=== PATIENT | male | born 1955 | race Two or more races ===

== ENCOUNTER 2018-12-25 19:13 | Inpatient (IN) | payer SELFPAY ==
[~2018-12-25] VITALS: Ht 177.8 cm; Wt 90.0 kg
[2018-12-25] MEDS ORDERED: MORPHINE SULFATE INJECTION 1 ML ONE (19:22)
[2018-12-25] MEDS ORDERED: ONDANSETRON HCL 4 MG/2 ML VIAL ONE (19:25)
[2018-12-25] MEDS ORDERED: ATORVASTATIN 20 MG TAB ONE (19:27)
[2018-12-25] MEDS ORDERED: MORPHINE SULFATE 4 MG/ML SYR/VIAL IV ONE ×2 (19:30→19:45)
[2018-12-25] MEDS ORDERED: ATORVASTATIN 20 MG TAB PO ONE (19:30)
[2018-12-25] MEDS ORDERED: ONDANSETRON HCL 4 MG/2 ML VIAL IV ONE (19:30)
[2018-12-25] MEDS ORDERED: HEPARIN SODIUM (PORCINE) 5000 UNITS/ML 1ML VIAL ONE (19:41)
[2018-12-25] MEDS ORDERED: HEPARIN SODIUM (PORCINE) 5000 UNITS/ML 1ML VIAL IV ONE (19:45)
[2018-12-25] MEDS ORDERED: IOHEXOL 350 MG/ML 100ML IJ ONE (19:47)
[2018-12-25] MEDS ORDERED: fentaNYL CITRATE 100 MCG/2 ML VL ONE (19:47)
[2018-12-25] MEDS ORDERED: ANGIOMAX 250 MG VIAL IV ONE ×2 (19:47→20:49)
[2018-12-25] MEDS ORDERED: LIDOCAINE 2%HCL (LOCAL ANESTH.) INJ 20ML MDV ONE (19:47)
[2018-12-25] MEDS ORDERED: SODIUM CHL 0.9% 50 ML ONE ×2 (19:47→20:49)
[2018-12-25] MEDS ORDERED: MIDAZOLAM HCL 1MG/1ML-2 ML VIAL ONE (19:47)
[2018-12-25 19:58] LABS: Basophils # (auto) 0.1 uL; Eosinophils # (auto) 0.2 uL; Eosinophils % (auto) 1.6 % (0.0-7.0); Hematocrit 44.2 % (41.0-53.0); Hemoglobin 15.3 g/dL (13.5-17.5); Lymphocytes # (auto) 5.6 uL; Lymphocytes % (auto) 47.7 % (10.0-50.0); Mean Corpuscular Hemoglobin 31.9 pg (28.0-32.0); Mean Corpuscular Hgb Conc. 34.6 g/dL (32.0-36.0); Mean Corpuscular Volume 92.2 fL (80.0-100.0); Monocytes # (auto) 1.1 uL; Monocytes % (auto) 9.4 % (0.0-12.0); Neutrophils # (auto) 4.7 uL; Neutrophils % (auto) 40.3 % (37.0-80.0); Nucleated Red Blood Cells % 0.1 %; Platelet Count (auto) 297 10^3/uL (140-450); Red Cell Distribution Width 12.9 % (11.8-14.3); White Blood Cell 11.6 10^3/uL (4.4-10.8)
[2018-12-25 20:05] LABS: INR 1.26 (0.9-1.15); Partial Thromboplastin Time 22.6 sec (23.64-32.05)
[2018-12-25 20:19] LABS: Alanine Aminotransferase 33 U/L (16-61); Albumin 3.9 g/dL (3.4-5.0); Anion Gap 10 (5-15); Blood Urea Nitrogen 14 mg/dL (7-18); Calcium 8.5 mg/dL (8.5-10.1); Carbon Dioxide 24 mmol/L (21-32); Chloride 106 mmol/L (98-107); Glucose 125 mg/dL (74-106); Magnesium 2.4 mg/dL (1.6-2.6); Potassium 3.5 mmol/L (3.5-5.1); Sodium 140 mmol/L (136-145)
[2018-12-25] MEDS ORDERED: EPTIFIBATIDE INJ (2MG/ML) 10ML VIAL IV ONE (20:23)
[2018-12-25 20:24] LABS: Alkaline Phosphatase 92 U/L (45-117); Aspartate Aminotransferase 21 U/L (15-37); BUN/Creatinine Ratio 7.8; Bilirubin, Total 0.5 mg/dL (0.2-1.0); GFR African American 50 mL/min; GFR Non-African American 41 mL/min
[2018-12-25] MEDS ORDERED: ADENOSINE 6 MG/2 ML INJ IV ONE (20:39)
[2018-12-25] MEDS ORDERED: ATROPINE SULF 1 MG/10ml SYR ONE (20:39)
[2018-12-25] MEDS ORDERED: CLOPIDOGREL 300 MG TAB ONE (21:10)
[2018-12-25] MEDS ORDERED: MORPHINE SULF INJ 2 MG/ML SYRINGE 1ML IV PRN (21:30)
[2018-12-25] MEDS ORDERED: SODIUM CHLORIDE 0.9% 1,000 ML IV SCH (21:45)
--- NOTE | 2018-12-25 22:00 | NUR ---
Received patient from labor operator. Awake alert and oriented. Son and daughter at bedside. Mostly Fijian speaking so children are assisting with translating for patient. Reports tolerable pain to HUGO chest area and left arm. Tele monitor reading SR. Lying flat at this time and to continue flat for 1 more hour per report from Lavell in the labor operator. Angio site to R groin clean dry and intact. Skin clean warm and dry no wounds noted. Area around site soft to touch, no drainage noted. No SOB. IV to R AC patent and saline locked. IV to L AC patent and infusing fluids per order. Requesting to move rooms due to roommate interfering constantly and bothering them.
[2018-12-25] MEDS: SODIUM CHLORIDE 0.9% 1,000 ML IV SCH (23:00)
--- NOTE | 2018-12-25 23:00 | NUR ---
Spoke with ROSA M Marroquni. Moving patient to room 272 B. Family is happy about the move. Oriented to room and hospital policies. Call light within reach, Bed low.
[2018-12-25] MEDS: METOPROLOL TARTRATE 25 MG TAB PO SCH (23:45)
[2018-12-26] VITALS (23 sets, daily range): BP systolic 82–124; BP diastolic 48–80
--- NOTE | 2018-12-26 03:00 | NUR ---
Patient complaining of pain in left hand and arm as well as left upper chest. Same pain he had since procedure. Refusing lab draw due to boat driver missing x2. Will have another boat driver try at 0400 . [place] given. Will follow up
[2018-12-26] MEDS: HYDROcodone-ACET 5/325MG TAB PO PRN ×2 (03:10→22:08)
--- NOTE | 2018-12-26 03:45 | NUR ---
Continues to have pain 8/10 to left upper chest area. Reading sinus rythm on telemetry. Administered morphine and EKG. Gave charge nurse Cara copy of EKG and she is giving it to supervisor evaporator to sign.Collected UA and sent to lab. Continuing to monitor.
[2018-12-26] MEDS: NITROGLYCERIN 0.4 MG SL TAB SL PRN ×4 (04:35→09:18)
[2018-12-26 05:35] LABS: Alcohol, Urine < 3.0 mg/dL (0-5); Amphetamine Screen, Urine NEGATIVE (NEGATIVE); Barbiturate Scree,Urine NEGATIVE (NEGATIVE); Benzodiazephine Screen, Urine POSITIVE (NEGATIVE); Cannabinoid Screen, Urine NEGATIVE (NEGATIVE); Cocaine Screen, Urine NEGATIVE (NEGATIVE)
[2018-12-26 05:43] LABS: Opiate Scree,Urine POSITIVE (NEGATIVE); Phencyclidine Screen, Urine NEGATIVE (NEGATIVE)
--- NOTE | 2018-12-26 05:59 | NUR ---
Miguel Felton. returned phone call promptly. Informed him of EKG results and patient status.Ordered 0.[address] on patient. Will carry out orders. Patient resting at this time. No distress noted.
[2018-12-26 06:08] LABS: Basophils # (auto) 0.1 uL; Basophils % (auto) 0.8 % (0.0-2.0); Eosinophils # (auto) 0 uL; Eosinophils % (auto) 0.4 % (0.0-7.0); Hematocrit 41.6 % (41.0-53.0); Hemoglobin 14.7 g/dL (13.5-17.5); Mean Corpuscular Hemoglobin 32.6 pg (28.0-32.0); Mean Corpuscular Hgb Conc. 35.3 g/dL (32.0-36.0); Mean Corpuscular Volume 92.3 fL (80.0-100.0); Monocytes # (auto) 0.8 uL; Monocytes % (auto) 7.6 % (0.0-12.0); Neutrophils # (auto) 7.3 uL; Neutrophils % (auto) 71.2 % (37.0-80.0); Platelet Count (auto) 237 10^3/uL (140-450); Red Cell Distribution Width 12.9 % (11.8-14.3); White Blood Cell 10.2 10^3/uL (4.4-10.8)
[2018-12-26 06:27] LABS: Potassium 3.8 mmol/L (3.5-5.1)
[2018-12-26 06:37] LABS: Calcium 8.3 mg/dL (8.5-10.1)
[2018-12-26] MEDS ORDERED: NITROGLYCERIN 0.4MG/HR TOPICAL PATCH TD ONE (06:45)
--- NOTE | 2018-12-26 07:30 | NUR ---
RECEIVED REPORT FROM NIGHT NURSE. PATIENT RESTING IN BED, NO DISTRESS NOTED. WILL CONTINUE TO MONITOR.
--- NOTE | 2018-12-26 09:10 | NUR ---
PATIENT COMPLAINING OF CHEST PAIN, TINGLING IN LEFT HAND/ARM. VITALS STABLE, EKG COMPLETED, NITRO GIVEN. WILL NOTIFY DR. JAQUEZ.
[2018-12-26] MEDS: METOPROLOL TARTRATE 25 MG TAB PO SCH ×2 (09:16→22:00)
[2018-12-26] MEDS: ASPirin 81 mg TAB PO SCH (09:16)
[2018-12-26] MEDS: CLOPIDOGREL BISULFATE 75 MG TAB PO SCH (09:16)
--- NOTE | 2018-12-26 09:20 | NUR ---
SPOKE WITH DOCTOR Tommie JAQUEZ, HE WAS SHOWN EKG, STATED THAT IT IS OK, ORDER FOR TRANSFER TO ICU OBTAINED. WILL PLACE AND CARRY OUT.
--- NOTE | 2018-12-26 09:46 | NUR ---
CHEST PAIN PATIENT STATE THAT CHEST PAIN IS DECREASING AND HE IS FEELING BETTER. MORNING MEDICATIONS GIVEN, FAMILY AT BEDSIDE. WILL CONTINUE TO MONITOR.
--- NOTE | 2018-12-26 12:38 | NUR ---
REPORT GIVEN TO REDDY PICKETT
[2018-12-26] MEDS: SODIUM CHLORIDE 0.9% 1,000 ML IV SCH (12:45)
--- NOTE | 2018-12-26 13:09 | NUR ---
TRANSFER TO ICU Patient taken to ICU room 103. Patient is stable, no sights of distress noted. All belongings sent with patient.
--- NOTE | 2018-12-26 13:09 | NUR ---
RECEIVED PT TO ROOM 103 A TRANSFER FROM TELEMETRY. PT WITH LEFT SIDED CHEST PAIN, NON RADIATING, AND RATES IT 4/10. CONNECTED TO BEDSDIE MONITORING AND O2 AT 2 L/M VIA NC. LUNGS CLEAR THROUGHOUT. DENIES ANY SOB. TELE SR [address] ELEVATION IN LEADS I/II/ AVF. PALPABLE PULSES TO ALL EXTREMITIES WITH NO EDEMA NOTED. ABD SOFT WITH + BOWEL SOUDNS. VOIDS VIA URINAL. SKIN INTACT EXCEPT FOR DRESSING TO RIGHT FEMORAL, PREVIOUS ANGIO SITE. TENDER TO THE TOUCH AND SMALL BRUISE NOTED. PER REPORT, PT WAS TO BE STARTED ON A NITROGLYCERIN DRIP, BUT NO ORDER. WILL CONTACT DR Tommie JAQUEZ.
--- NOTE | 2018-12-26 14:10 | NUR ---
FAMILY 3 DAUGHTERS BROUGHT INTO THE BEDSIDE AND UPDATED ON PT'S CURRENT CONDITION AND PLANNED LHC FOR TOMORROW MORNING.
--- NOTE | 2018-12-26 14:25 | NUR ---
PT STATES LEFT CHEST PAIN 07/06 NOW 2/.
--- NOTE | 2018-12-26 14:45 | NUR ---
PT COMPLETELY PAIN FREE.
--- NOTE | 2018-12-26 15:05 | NUR ---
SPOKE WITH DR Tommie JAQUEZ BY PHONE TO CLARIFY IF HE WANTS THE NTG DRIP OR NOT. HE SAYS IT CAN BE STARTED IF THE PT HAS FURTHER CHEST PAIN. MADE AWARE OF SBP 100-106 AND HE ORDERED FOR 1 LITER NS WIDE OPEN. CONTINUE TO MONITOR.
[2018-12-26] MEDS ORDERED: NITROGLYCERIN 50MG/250ML 250 ML IV SCH (15:15)
[2018-12-26] MEDS ORDERED: SODIUM CHLORIDE 0.9% 1,000 ML IV ONE (15:15)
--- NOTE | 2018-12-26 17:00 | NUR ---
PT RESTING WITH NO C/O CHEST PAIN GOING UP AND DOWN , 3/10 AT THE MOST. VS: 81-17-95% AND 114/72/. NS BOLUS NEARLY COMPLETED. WILL START ON NITROGLYCERIN DRIP.
--- NOTE | 2018-12-26 17:15 | NUR ---
STARTED NITRO DRIP AT 5 MCG. MIDSTERNAL CP 06/05.
--- NOTE | 2018-12-26 17:23 | NUR ---
CP 3/10 AND BP 114/70. INCREASED NITRO TO 10 MCG. CONTINUE TO MONITOR BP AND PAIN RELIEF.
--- NOTE | 2018-12-26 17:30 | NUR ---
PAIN NOW 2/10. CONTINUE TO MONITOR
--- NOTE | 2018-12-26 17:48 | NUR ---
85-13-96% AND 116/68. LEFT CP 3/10 NITRO UP TO 15.
--- NOTE | 2018-12-26 18:15 | NUR ---
87-13-97% AND 96/55. O2 REMAINS AT 2 L/M VIA NC. LUNGS CLEAR. MIDSTERNAL CP 05/08.
--- NOTE | 2018-12-26 18:30 | NUR ---
NTG DRIP UP TO 20. 87-17-96% AND 101/63. CP IS NOW LOW MIDSTERNAL ALMOST AND EPIGASTRIC PAIN. WILL CONTACT DR JAQUEZ TO SEE IF HE WANTS TO ORDER ANYTHING ELSE.
--- NOTE | 2018-12-26 19:05 | NUR ---
MD SPOKE WITH DR Tommie JAQUEZ REGARDING PT'S CONTINUED C/O LEFT OR MIDSTERNAL CHEST PAIN AND SOME C/O EPIGASTRIC PAIN. ORDERS RECEIVED FOR A STAT EKG AND TROPONIN AND TO START PT ON PROTONIX AND CARAFATE. EKG DONE WITH NO CHANGES NOTED AND SENT TO DR JAQUEZ . FIRST DOSE OF CARAFATE GIVEN. PT RATES PAIN 2-3/10.
[2018-12-26] MEDS ORDERED: SUCRALFATE 1 GM/10 ML ORAL SUSP ONE (19:12)
--- NOTE | 2018-12-26 19:30 | NUR ---
REPORT REPORT GIVEN TO KIMBERLI MORENO RN.
[2018-12-26] MEDS: SUCRALFATE 1 GM/10 ML ORAL SUSP GT SCH (22:00)
[2018-12-26] MEDS: ATORVASTATIN 20 MG TAB PO SCH (22:04)
[2018-12-26] MEDS: PANTOPRAZOLE 40 MG/10 ML VIAL INJ IV SCH (22:04)
[2018-12-27] VITALS (46 sets, daily range): BP systolic 74–136; BP diastolic 42–89
[2018-12-27] MEDS: SODIUM CHLORIDE 0.9% 1,000 ML IV SCH ×2 (00:55→14:15)
--- NOTE | 2018-12-27 06:29 | NUR ---
Uneventful night, patient did not report chest pain, took [place] at bedtime for sleep, remains on 20 mcg/ min NTG, good UO, no arrhythmias, NPO since midnight for laboratory specialist this am.VSS
[2018-12-27] MEDS: SUCRALFATE 1 GM/10 ML ORAL SUSP GT SCH ×5 (07:00→18:31)
[2018-12-27 09:59] LABS: Basophils # (auto) 0.1 uL; Basophils % (auto) 0.7 % (0.0-2.0); Eosinophils # (auto) 0.2 uL; Eosinophils % (auto) 1.9 % (0.0-7.0); Hematocrit 37.2 % (41.0-53.0); Hemoglobin 13.2 g/dL (13.5-17.5); Lymphocytes % (auto) 21.6 % (10.0-50.0); Mean Corpuscular Hemoglobin 32.5 pg (28.0-32.0); Mean Corpuscular Hgb Conc. 35.6 g/dL (32.0-36.0); Mean Corpuscular Volume 91.4 fL (80.0-100.0); Monocytes % (auto) 10.9 % (0.0-12.0); Neutrophils # (auto) 5.9 uL; Neutrophils % (auto) 64.9 % (37.0-80.0); Nucleated Red Blood Cells % 0.1 %; Platelet Count (auto) 178 10^3/uL (140-450); Red Blood Cells 4.07 10^6/uL (4.5-5.90); White Blood Cell 9.1 10^3/uL (4.4-10.8)
[2018-12-27] MEDS: METOPROLOL TARTRATE 25 MG TAB PO SCH ×2 (10:00→22:08)
[2018-12-27] MEDS: PANTOPRAZOLE 40 MG/10 ML VIAL INJ IV SCH ×2 (10:00→22:00)
[2018-12-27 10:07] LABS: Albumin 3.1 g/dL (3.4-5.0); Calcium 7.9 mg/dL (8.5-10.1)
[2018-12-27 10:10] LABS: BUN/Creatinine Ratio 11.6; Total Protein 6.6 g/dL (6.4-8.2)
[2018-12-27] MEDS ORDERED: IOHEXOL 350 MG/ML 100ML IJ ONE ×2 (10:23→11:51)
[2018-12-27] MEDS ORDERED: LIDOCAINE 2%HCL (LOCAL ANESTH.) INJ 20ML MDV ONE (10:23)
--- NOTE | 2018-12-27 11:09 | NUR ---
PATIENT OFF FLOOR TAKEN TO E MAIL SYSTEM ADMINISTRATOR VIA GURNEY ACCOMPANIED BY E MAIL SYSTEM ADMINISTRATOR RN'S X3. PATIENT ALERT AND ORIENTED X4, NO DISTRESS NOTED, RESPIRATIONS EVEN AND UNLABORED. PATIENT DENIES CHEST PAIN OR DISCOMFORT AT THIS TIME. FAMILY AT BEDSIDE AND WILL WAIT IN ICU WAITING ROOM. WILL CONTINUE TO MONITOR UPON RETURN TO FLOOR.
[2018-12-27] MEDS ORDERED: fentaNYL CITRATE 100 MCG/2 ML VL ONE (11:19)
[2018-12-27] MEDS ORDERED: ANGIOMAX 250 MG VIAL IV ONE (11:19)
[2018-12-27] MEDS ORDERED: MIDAZOLAM HCL 1MG/1ML-2 ML VIAL ONE (11:20)
[2018-12-27] MEDS ORDERED: SODIUM CHL 0.9% 50 ML ONE (11:20)
[2018-12-27] MEDS ORDERED: ATROPINE SULF 1 MG/10ml SYR ONE (11:24)
[2018-12-27] MEDS ORDERED: EPINEPHrine HCL 1 MG/10 ML SYRG ONE (11:24)
[2018-12-27] MEDS ORDERED: ADENOSINE 6 MG/2 ML INJ IV ONE (11:25)
--- NOTE | 2018-12-27 12:35 | NUR ---
PATIENT RETURN FROM ANGIO[facility]HER [facility] AFTER RECEIVING REPORT. PATIENT ALERT AND ORIENTED X4, NO DISTRESS NOTED, RESPIRATIONS EVEN AND UNLABORED. PATIENT RIGHT SIDE GROIN DRESSING CLEAN, DRY AND INTACT. NO SWELLING OR REDNESS NOTED, AREA SOFT TO TOUCH. PATIENT REPORTS CHEST PAIN - DR Omer JAQUEZ AT BEDSIDE AND AWARE, DR JAQUEZ NOTIFIED PATIENT THAT PAIN WAS TO BE EXPECTED AND THAT HE CAN BE DOWNGRADED TO TELE AND DISCHARGED HOME TOMORROW. PATIENT VERBALIZED UNDERSTANDING.
[2018-12-27] MEDS: CLOPIDOGREL BISULFATE 75 MG TAB PO SCH (13:00)
[2018-12-27] MEDS: ASPirin 81 mg TAB PO SCH (13:00)
--- NOTE | 2018-12-27 14:14 | NUR ---
Assessment Pt is a 63 yr old male, awake but not attentive. SW tried asking a few questions but pt stated that he did not feel well and to talk with his daughter who would be back shortly. SW returned to pts room within the hour then attempted to call the daughter, Yaquelin Saldana, at [phone] without any response. SW will assess pts d/c needs closer to d/c. Addendum: 12/27/18 at 1415 by ZIGGY SNYDER SS Amended: Links added.
--- NOTE | 2018-12-27 14:25 | NUR ---
RECEIVED REPORT FROM ICU RAYMOND, WILL AWAIT PATIENT.
--- NOTE | 2018-12-27 14:50 | NUR ---
ICU patient trans to floor JALEN DOLAN transferred to room 272A via gurney on freezer worker and portable 02. All patient personal belongings transferred with patient to receiving floor. Report previously provided to receiving RN REDDY Pritchard. Patient's daughter Jeannie notified. Patient alert and oriented x4, no distress noted, respirations even and unlabored. Patient able to transfer from ICU bed to tele bed with no problem noted. Left groin heart cath insertion site assessed and clean, dry and intact, no swelling or redness noted. Patient care endorsed to receiving RN.
--- NOTE | 2018-12-27 19:17 | NUR ---
Re: Discharge Spoke with Dr. Tommie Tyson, discharge order clarified. Patient to be discharged tomorrow. Francheska BLAKELY made aware and will inform oncoming nurse.
--- NOTE | 2018-12-27 19:40 | NUR ---
Opening Shift Note Assumed care of patient, awake and alert, oriented x 4, follows direction, clear speech. On oxygen at 2L via NC with even and unlabored respiration, no S/S of distress or SOB. patient is s/p [facility] with dressing to left groin clean, dry, and intact, no bleeding, site soft upon palpation, no s/s of hematoma. Dressing to right groin from [facility] on 12/25 clean, dry, and intact, no s/s of bleeding, site soft upon palpation. Bilateral pedal pulse 3+, even and regular, brisk capillary refill, positive tissue perfusion. IV to right and left AC intact and patent. Bed low locked position with side rails up x 2 and call light within reach. Instructed on POC and to call for assist PRN, will continue to monitor for changes Q1hr and PRN.
[2018-12-27] MEDS: ATORVASTATIN 20 MG TAB PO SCH (22:08)
[2018-12-28 05:47] VITALS: BP_SYST 149; BP_SYST 91; BP_DIAS 58; BP_DIAS 74
[2018-12-28] MEDS: SUCRALFATE 1 GM/10 ML ORAL SUSP GT SCH ×2 (06:18→12:42)
[2018-12-28] MEDS: SODIUM CHLORIDE 0.9% 1,000 ML IV SCH (06:18)
--- NOTE | 2018-12-28 06:58 | NUR ---
Closing Note patient resting in bed with oxygen on at 2 L via NC with even and unlabored respirations. No s/s of distress. Dressing to bilateral groins CDI, soft upon palpation, no bleeding noted. Endorsed care to day shift RN.
--- NOTE | 2018-12-28 08:00 | NUR ---
RECEIVED PATIENT ALERT AND ORIENTED X4, NOT IN DISTRESS, CLEAR LS IN BILATERAL LUNG LOBES, RR=16-18, SAT=98%, SR R=80'S ON TELE MONITOR, DENIED CHEST PAIN OR SOB AT THIS MOMENT, ABDOMEN SOFT WITH ACTIVE BS, LAST BM=12/26/18 REPORTED, RT. GROIN ANGIO CITE HEMATOMA NOTED, COVERED WITH DRY AND INTACT DRESSING,DENIED PAIN ON THE SITE, LT. GROIN SITE COVERED WITH DRY AND INTACT DRESSING, DENIED PAIN OR DISCOMFORT ON THE SITE, NO EDEMA OR HEMATOMA NOTED, GENERAL SKIN INTACT WARM TO TOUCH, RADIAL AND PEDAL PULSES PALPABLE, OUT OF THE BED TO BATHROOM ENCOURAGED, DEMONSTRATED AND TOLERATED WELL, BACK TO THE BED AND RESTING, HEAD OF BED ELEVATED, BED IN LOW POSITION, RAILS UP X2, CALL LIGHT IN REACH, PENDING D/C HOME TODAY, WILL CONTINUE MONITORING.
[2018-12-28 09:00] VITALS: BP 98/58
[2018-12-28] MEDS: METOPROLOL TARTRATE 25 MG TAB PO SCH (09:51)
[2018-12-28] MEDS: CLOPIDOGREL BISULFATE 75 MG TAB PO SCH (09:52)
[2018-12-28] MEDS: ASPirin 81 mg TAB PO SCH (09:52)
[2018-12-28] MEDS: PANTOPRAZOLE 40 MG/10 ML VIAL INJ IV SCH (10:00)
[2018-12-28 12:00] VITALS: BP 92/61
--- NOTE | 2018-12-28 13:56 | NUR ---
Not in distress, denied pain, Rt. groin site no edema, dressing dry and intact, no pain or discomfort noted, pending d/c today.
[2018-12-28 14:25] VITALS: BP_SYST 126; BP_SYST 98; BP_DIAS 58; BP_DIAS 73
--- NOTE | 2018-12-28 16:00 | NUR ---
D/C INSTRUCTIONS AND MEDICATION PRESCRIPTIONS EDUCATION WERE PROVIDED, VERBALIZED UNDERSTANDING, FOLLOW UP WITH [facility] AND INFORMATION FOLLOW UP WITH DR. GISELE Reilly PROVIDED, VERBALIZED UNDERSTANDING, D/C TELE AND IV SITES, TOLERATED WELL, VS T=97.6 RR=18 ST=97% P=76 RH=735/63, D/C HOME ON WC ACCOMPANIED BY FAMILY, TOOK ALL BELONGINGS AND LEFT NOTHING BEHIND.
== END 2018-12-28 15:50 | disposition home or self-care (01) | DRG 247 ==
LOC: EDBD 19:13 → ER 19:18 → CATH 1 19:25 → TELE-WESTW 22:13 → ICU WEST 12-26 13:06 → TELE-WESTW 12-27 15:18
PROVIDERS: ADMIT Specialist; ATTEND Specialist
PROC: 027034Z Dilation of Coronary Artery, One Artery with Drug-eluting Intraluminal Device, Percutaneous Approach (ICD-10-PCS; principal; 2018-12-25)
PROC: 02C03ZZ Extirpation of Matter from Coronary Artery, One Artery, Percutaneous Approach (ICD-10-PCS; 2018-12-25)
PROC: B240ZZ3 Ultrasonography of Single Coronary Artery, Intravascular (ICD-10-PCS; 2018-12-25)
PROC: B2111ZZ Fluoroscopy of Multiple Coronary Arteries using Low Osmolar Contrast (ICD-10-PCS; 2018-12-25)
PROC: B41G1ZZ Fluoroscopy of Left Lower Extremity Arteries using Low Osmolar Contrast (ICD-10-PCS; 2018-12-25)
PROC: B41C1ZZ Fluoroscopy of Pelvic Arteries using Low Osmolar Contrast (ICD-10-PCS; 2018-12-25)
PROC: 03HY32Z Insertion of Monitoring Device into Upper Artery, Percutaneous Approach (ICD-10-PCS; 2018-12-25)
PROC: 027034Z Dilation of Coronary Artery, One Artery with Drug-eluting Intraluminal Device, Percutaneous Approach (ICD-10-PCS; 2018-12-27)
PROC: B41G1ZZ Fluoroscopy of Left Lower Extremity Arteries using Low Osmolar Contrast (ICD-10-PCS; 2018-12-27)
PROC: B41C1ZZ Fluoroscopy of Pelvic Arteries using Low Osmolar Contrast (ICD-10-PCS; 2018-12-27)
DX: I21.09 ST elevation (STEMI) myocardial infarction involving other coronary artery of anterior wall (principal); I25.10 Atherosclerotic heart disease of native coronary artery without angina pectoris; F17.200 Nicotine dependence, unspecified, uncomplicated; E66.01 Morbid (severe) obesity due to excess calories; Z79.899 Other long term (current) drug therapy; Z68.28 Body mass index [BMI] 28.0-28.9, adult
CPT/HCPCS: 36415; 71045; 75710; 75736; 80048; 80053; 80061; 80307; 83036; 83735; 84484; 85025; 85610; 85730; 86850; 86900; 86901; 87081; 92928; 92933; 92978; 94761; 99152; 99153; C1874; C9113; G0378; J0153; J2250; J2405